=== PATIENT | female | born 1995 | race Caucasian/White ===

== ENCOUNTER 2016-10-13 03:04 | Emergency (ER) | payer SELFPAY ==
[~2016-10-13] VITALS: Ht 160 cm; Wt 86.2 kg
[2016-10-13 03:27] LABS: ADD MIUA? YES; BILIRUBIN NEGATIVE; BLOOD LARGE; COLOR YELLOW ((YELLOW)); GLUCOSE (STRIP) NEGATIVE; KETONES NEGATIVE; LEUKOCYTES MODERATE; NITRITE NEGATIVE; PROTEIN (STRIP) 30; SPECIFIC GRAVITY 1.026 (1.000-1.030); UROBILINOGEN 0.2 MG/DL (0.2-1.0)
[2016-10-13 03:30] LABS: BACTERIA RARE /HPF; EPITHELIAL CELLS 2+ /HPF; MUCUS TRACE /LPF; RED BLOOD CELLS TNTC /HPF (0-5); UCUL ADDED? YES; WHITE BLOOD CELLS 20-30 /HPF (0-5)
[2016-10-13 03:47] LABS: HEMATOCRIT 37.7 % (36.0-46.0); MCH 30.2 PG (29.0-34.0); MCHC 34.5 G/DL (30.0-36.0); MCV 87.7 FL (83-99); MEAN PLAT.VOLUME 10.5 uM^3 (9.5-12.4); PLATELET COUNT 314 K/uL (156-360); RBC DIS.WIDTH-CV 12.6 % (11.8-14.6); RBC DIS.WIDTH-SD 40.1 % (39-53); WHITE BLOOD COUNT 8.2 K/uL (4.1-10.2)
[2016-10-13 03:56] LABS: CHLORIDE 107 mEq/L (99-109); POTASSIUM 3.7 mEq/L (3.7-5.4); SODIUM 138 mEq/L (136-147)
[2016-10-13 03:58] LABS: GLUCOSE 96 mg/dL (70-99)
[2016-10-13 03:59] LABS: ANION GAP 8 MEQ/L (2-14)
[2016-10-13 04:00] LABS: TOTAL BILIRUBIN 0.3 mg/dL (0.0-1.0)
[2016-10-13 04:01] LABS: ALKALINE PHOSPHATASE 82 IU/L (3-129)
[2016-10-13 04:02] LABS: GFR ESTIMATE (CALCULATED) > 59 mL/min/
[2016-10-13 04:03] LABS: UREA NITROGEN (BUN) 11 mg/dL (9-23)
[2016-10-13 04:11] LABS: QUANTITATIVE HCG < 4.0 MIU/ML
[2016-10-13] MEDS ORDERED: NAPROXEN500 MG PO (04:39)
[2016-10-13] MEDS ORDERED: ZOFRAN4 MG PO (04:39)
[2016-10-13 05:19] VITALS: BP 113/82
== END 2016-10-13 05:25 | disposition home or self-care (01) ==
LOC: EME 03:04
DX: N94.6 Dysmenorrhea, unspecified (principal); N83.201 Unspecified ovarian cyst, right side
CPT/HCPCS: 74177; 80053; 81003; 84702; 85027; 87077; 87086; 87186; 99281; 99285; J1885; J2270; J2405

== ENCOUNTER 2016-10-30 21:56 | Emergency (ER) | payer OTHER ==
[~2016-10-30] VITALS: Ht 160 cm; Wt 85.7 kg
[~2016-10-30 21:56] MED LIST: NAPROXEN500 MG PO; ZOFRAN4 MG PO
[2016-10-30 23:08] LABS: HEMATOCRIT 41.1 % (36.0-46.0); MCH 29.6 PG (29.0-34.0); MCHC 33.6 G/DL (30.0-36.0); MEAN PLAT.VOLUME 10.4 uM^3 (9.5-12.4); PLATELET COUNT 328 K/uL (156-360); RBC DIS.WIDTH-CV 12.1 % (11.8-14.6); RBC DIS.WIDTH-SD 38.8 % (39-53); RED BLOOD COUNT 4.67 M/uL (3.80-5.20); WHITE BLOOD COUNT 6.7 K/uL (4.1-10.2)
[2016-10-30 23:20] LABS: CHLORIDE 106 mEq/L (99-109); SODIUM 140 mEq/L (136-147)
[2016-10-30 23:21] LABS: GLUCOSE 88 mg/dL (70-99)
[2016-10-30 23:23] LABS: ANION GAP 9 MEQ/L (2-14)
[2016-10-30 23:25] LABS: GFR ESTIMATE (CALCULATED) > 59 mL/min/
[2016-10-30 23:26] LABS: UREA NITROGEN (BUN) 13 mg/dL (9-23)
[2016-10-30 23:33] LABS: QUANTITATIVE HCG < 4.0 MIU/ML
[2016-10-31] LABS: ADD MIUA? NO; BILIRUBIN NEGATIVE; BLOOD NEGATIVE; COLOR YELLOW ((YELLOW)); GLUCOSE (STRIP) NEGATIVE; KETONES NEGATIVE; LEUKOCYTES NEGATIVE; NITRITE NEGATIVE; PROTEIN (STRIP) NEGATIVE; SPECIFIC GRAVITY 1.017 (1.000-1.030); UCUL ADDED? NO; UROBILINOGEN 0.2 MG/DL (0.2-1.0)
[2016-10-31 00:56] VITALS: BP 105/81
== END 2016-10-31 00:58 | disposition home or self-care (01) ==
LOC: EME 21:56
PROVIDERS: Physician Assistant
DX: N93.8 Other specified abnormal uterine and vaginal bleeding (principal); R56.9 Unspecified convulsions; Z88.2 Allergy status to sulfonamides; Z88.0 Allergy status to penicillin
CPT/HCPCS: 76856; 80048; 81003; 84702; 85027; 99281; 99284

== ENCOUNTER 2016-11-02 15:08 | Emergency (ER) | payer OTHER ==
[~2016-11-02] VITALS: Ht 160 cm; Wt 88.0 kg
[2016-11-02] MEDS ORDERED: KEPPRA500 MG PO (15:33)
[2016-11-02 16:01] LABS: HEMATOCRIT 40.4 % (36.0-46.0); MCH 30.1 PG (29.0-34.0); MCHC 34.2 G/DL (30.0-36.0); MEAN PLAT.VOLUME 10.4 uM^3 (9.5-12.4); PLATELET COUNT 322 K/uL (156-360); RBC DIS.WIDTH-CV 12.2 % (11.8-14.6); RBC DIS.WIDTH-SD 39.3 % (39-53); RED BLOOD COUNT 4.59 M/uL (3.80-5.20); WHITE BLOOD COUNT 6.1 K/uL (4.1-10.2)
[2016-11-02 16:13] LABS: CHLORIDE 108 mEq/L (99-109); POTASSIUM 3.9 mEq/L (3.7-5.4); SODIUM 140 mEq/L (136-147)
[2016-11-02 16:15] LABS: GLUCOSE 87 mg/dL (70-99)
[2016-11-02 16:16] LABS: ANION GAP 9 MEQ/L (2-14)
[2016-11-02 16:19] LABS: GFR ESTIMATE (CALCULATED) > 59 mL/min/
[2016-11-02 16:20] LABS: UREA NITROGEN (BUN) 11 mg/dL (9-23)
[2016-11-02 16:27] LABS: QUANTITATIVE HCG < 4.0 MIU/ML
[2016-11-02 16:41] LABS: ADD MIUA? YES; BILIRUBIN NEGATIVE; BLOOD MODERATE; COLOR YELLOW ((YELLOW)); GLUCOSE (STRIP) NEGATIVE; KETONES NEGATIVE; LEUKOCYTES LARGE; NITRITE NEGATIVE; PROTEIN (STRIP) 30; SPECIFIC GRAVITY 1.024 (1.000-1.030); UROBILINOGEN 0.2 MG/DL (0.2-1.0)
[2016-11-02 17:03] LABS: BACTERIA RARE /HPF; EPITHELIAL CELLS 2+ /HPF; MUCUS TRACE /LPF; RED BLOOD CELLS 0-5 /HPF (0-5); WHITE BLOOD CELLS 30-40 /HPF (0-5)
[2016-11-02] MEDS ORDERED: MACROBID100 MG PO (17:15)
[2016-11-02 17:26] VITALS: BP 116/78
== END 2016-11-02 17:27 | disposition home or self-care (01) ==
LOC: EME 15:08
PROVIDERS: Physician Assistant
DX: R56.9 Unspecified convulsions (principal); N39.0 Urinary tract infection, site not specified
CPT/HCPCS: 80048; 81003; 84702; 85027; 93005; 99281; 99284

== ENCOUNTER 2016-11-09 23:57 | Emergency (ER) | payer OTHER ==
[~2016-11-09] VITALS: Ht 160 cm; Wt 81.3 kg
[~2016-11-09 23:57] MED LIST changes: +KEPPRA500 MG PO; +MACROBID100 MG PO
[2016-11-10] MEDS ORDERED: NAPROSYN500 MG PO (02:40)
[2016-11-10 03:05] VITALS: BP 121/77
== END 2016-11-10 03:05 | disposition home or self-care (01) ==
LOC: EME 23:57
DX: S93.401A Sprain of unspecified ligament of right ankle, initial encounter (principal); X50.9XXA Other and unspecified overexertion or strenuous movements or postures, initial encounter
CPT/HCPCS: 73610; 99281; 99283; J1885

== ENCOUNTER 2017-05-08 21:35 | Outpatient (CLI) | payer OTHER ==
[~2017-05-08 21:35] MED LIST changes: +NAPROSYN500 MG PO
[2017-05-08 22:00] VITALS: BP 121/81
[2017-05-08] MEDS ORDERED: LAMICTAL25 MG PO ×2 (22:08→22:10)
[2017-05-08] MEDS ORDERED: PRENATAL VITAM1 EA11 PO (22:55)
[2017-05-08 22:58] VITALS: BP 127/73
== END 2017-05-08 23:15 | disposition home or self-care (01) ==
LOC: LDRP-OP 21:35 → 2WEST 21:36
DX: Z03.79 Encounter for other suspected maternal and fetal conditions ruled out (principal); O99.350 Diseases of the nervous system complicating pregnancy, unspecified trimester; G40.909 Epilepsy, unspecified, not intractable, without status epilepticus; W19.XXXA Unspecified fall, initial encounter; Z3A.00 Weeks of gestation of pregnancy not specified
CPT/HCPCS: 59025; G0378

== ENCOUNTER 2017-07-26 19:45 | Emergency (ER) | payer OTHER ==
[~2017-07-26] VITALS: Ht 157.5 cm; Wt 96.4 kg
[~2017-07-26 19:45] MED LIST changes: +LAMICTAL25 MG PO; +PRENATAL VITAM1 EA11 PO
[2017-07-26] MEDS ORDERED: MUCINEX DM ER1 EACH PO (22:07)
[2017-07-26 22:31] VITALS: BP 120/79
== END 2017-07-26 22:32 | disposition home or self-care (01) ==
LOC: EME 19:45
DX: S93.401A Sprain of unspecified ligament of right ankle, initial encounter (principal); S80.02XA Contusion of left knee, initial encounter; S80.812A Abrasion, left lower leg, initial encounter; J20.8 Acute bronchitis due to other specified organisms; W01.0XXA Fall on same level from slipping, tripping and stumbling without subsequent striking against object, initial encounter; Y93.01 Activity, walking, marching and hiking; Z33.1 Pregnant state, incidental; Z88.2 Allergy status to sulfonamides; Z88.0 Allergy status to penicillin
CPT/HCPCS: 73590; 73610; 73630; 99281; 99285

== ENCOUNTER 2017-08-02 01:04 | Outpatient (CLI) | payer OTHER ==
[~2017-08-02] VITALS: Ht 157.5 cm; Wt 95.3 kg
[~2017-08-02 01:04] MED LIST changes: +MUCINEX DM ER1 EACH PO
[2017-08-02 01:26] VITALS: BP 119/72
[2017-08-02 02:26] VITALS: BP 109/67
[2017-08-02] MEDS ORDERED: LAMICTAL100 MG PO ×2 (02:58→02:59)
[2017-08-02] MEDS ORDERED: ASCORBIC ACID100 MG PO (03:00)
== END 2017-08-02 04:32 | disposition home or self-care (01) ==
LOC: LDRP-OP 01:04 → 2WEST 01:05 → LDRP-OP 09-27 23:37
DX: O47.03 False labor before 37 completed weeks of gestation, third trimester (principal); Z3A.36 36 weeks gestation of pregnancy
CPT/HCPCS: 59025; G0378

== ENCOUNTER 2017-08-02 23:07 | Outpatient (CLI) | payer OTHER ==
[~2017-08-02 23:07] MED LIST changes: +ASCORBIC ACID100 MG PO; +LAMICTAL100 MG PO
[2017-08-02 23:21] VITALS: BP 115/78
[2017-08-02 23:35] VITALS: BP 119/82
[2017-08-03 00:32] VITALS: BP 134/83
== END 2017-08-03 01:25 | disposition home or self-care (01) ==
LOC: LDRP-OP 23:07 → 2WEST 23:08 → LDRP-OP 09-27 04:53
DX: O26.893 Other specified pregnancy related conditions, third trimester (principal); O99.353 Diseases of the nervous system complicating pregnancy, third trimester; O99.013 Anemia complicating pregnancy, third trimester; R10.9 Unspecified abdominal pain; G40.909 Epilepsy, unspecified, not intractable, without status epilepticus; D64.9 Anemia, unspecified; Z3A.36 36 weeks gestation of pregnancy
CPT/HCPCS: 59025; G0378

== ENCOUNTER 2017-08-14 03:49 | Outpatient (CLI) | payer OTHER ==
[2017-08-14 04:58] VITALS: BP 119/72
[2017-08-14 06:07] VITALS: BP 127/80
[2017-08-14 06:57] VITALS: BP 123/73
== END 2017-08-14 08:05 | disposition home or self-care (01) ==
LOC: LDRP-OP 03:49 → 2WEST 03:50 → LDRP-OP 09-27 01:31
DX: O26.893 Other specified pregnancy related conditions, third trimester (principal); O99.341 Other mental disorders complicating pregnancy, first trimester; F79 Unspecified intellectual disabilities; O99.353 Diseases of the nervous system complicating pregnancy, third trimester; R56.9 Unspecified convulsions; Z3A.38 38 weeks gestation of pregnancy
CPT/HCPCS: 59025; G0378